=== PATIENT | female | born 1965 | race Caucasian/White ===

== ENCOUNTER 2019-10-10 23:13 | Emergency (ER) | payer BC ==
[~2019-10-10] VITALS: Ht 154.9 cm; Wt 55.8 kg
[2019-10-10 23:13] VITALS: BP_SYST 127
[~2019-10-10 23:13] MED LIST: PRO40 PO
--- NOTE | 2019-10-10 23:13 | NUR ---
Pt BIB ALS, placed to ER bed 03, to gown, to director of cardiac cath lab. Report given to REBECA Hernandez.
--- NOTE | 2019-10-10 23:15 | NUR ---
Patient came into the ER because of burning pain in her chest. Patient also described right upper arm pain and left neck pain 5/10. MD was informed. Patient received 162 mg aspirin on route and nitro 0.4 mg. Patient reported poor appetite and weakness. Patient is AOx4 and not presenting any signs of acute distress. EKG completed stat and provided to MD to interpret.
--- NOTE | 2019-10-10 23:21 | NUR ---
ER Dr. Oconnell at bedside examining patient.
[2019-10-10] MEDS ORDERED: MAG HYDROX/AL HYDROX/SIMETH 30 ML, DICYCLOMINE HCL 20 MG, LIDOCAINE VISCOUS 2% 15ML (PO... PO ONE ×3 (23:45)
[2019-10-10] MEDS ORDERED: FAMOTIDINE PF 20 MG/2 ML VIAL IVP ONE (23:45)
[2019-10-11 00:26] LABS: BASOPHILS % (AUTO) 0.7 % (0.0-2.0); EOSINOPHILS # (AUTO) 0.1 K/uL (0.0-0.4); EOSINOPHILS % (AUTO) 2.7 % (0.0-4.0); HEMATOCRIT 36.5 % (36-48); HEMOGLOBIN 12.2 g/dL (12.0-16.0); LYMPHOCYTES # (AUTO) 1.9 K/uL (1.0-5.5); LYMPHOCYTES % (AUTO) 38.4 % (20.5-51.5); MEAN CORPUSCULAR HEMOGLOBIN 30 pg (27-31); MEAN CORPUSCULAR HGB CONC 34 % (32-36); MEAN CORPUSCULAR VOLUME 89 fL (79.0-98.0); MONOCYTES # (AUTO) 0.6 K/uL (0.0-1.0); MONOCYTES % (AUTO) 12.1 % (1.7-9.3); NEUTROPHILS # (AUTO) 2.3 K/uL (1.8-7.7); NEUTROPHILS % (AUTO) 46.1 % (40.0-70.0); PLATELET COUNT (AUTO) 209 K/uL (130-430); RED BLOOD CELL COUNT(AUTO) 4.11 MIL/uL (4.2-6.2); WHITE BLOOD COUNT (AUTO) 5.1 K/uL (4.8-10.8)
[2019-10-11 00:34] LABS: CALCIUM 9.7 mg/dL (8.4-11.0); CREATININE 0.76 mg/dL (0.55-1.30); POTASSIUM 3.5 mmol/L (3.5-5.1)
[2019-10-11 00:41] LABS: ALBUMIN 3.6 g/dL (3.4-4.8); TOTAL BILIRUBIN 0.4 mg/dL (0.0-1.0)
--- NOTE | 2019-10-11 01:45 | NUR ---
Patient resting quietly. No acute distress noted. Vital signs within normal range. at bedside.
--- NOTE | 2019-10-11 02:25 | NUR ---
Patient transported to radiology via , accompanied by rad staff.
--- NOTE | 2019-10-11 05:00 | NUR ---
Patient given written and verbal discharge instructions and verbalizes understanding. ER MD discussed with patient the results and treatment provided. Patient in stable condition. ID arm band removed. IV catheter removed intact and dressing applied, no active bleeding. Rx of Tramadol and Omerapozole given. Patient educated on pain management and to follow up with PMD. Pain Scale 0/10. Opportunity for questions provided and answered. Medication side effect fact sheet provided.
[2019-10-11 05:07] VITALS: BP_SYST 127
== END 2019-10-11 05:07 | disposition home or self-care (01) ==
LOC: SED 23:13
DX: R07.9 Chest pain, unspecified (principal); R06.02 Shortness of breath; R05 Cough; E03.9 Hypothyroidism, unspecified; Z79.899 Other long term (current) drug therapy; Z88.0 Allergy status to penicillin
CPT/HCPCS: 36415; 71045; 76700; 80053; 82550; 83690; 83880; 84484; 85025; 85379; 96374; 99284; J2001; J3490